=== PATIENT | female | born 2005 | race Caucasian/White ===

== ENCOUNTER 2025-05-23 18:51 | Inpatient (IN) ==
[2025-05-23 19:39] LABS: Hematocrit (blood only) 37.2 % (37.0-47.0); Hemoglobin 13.3 g/dl (12.0-16.0); Immature Granulocytes # (auto) 0.04 K/uL (0.01-0.20); Immature Granulocytes % (auto) 0.4 %; Mean Corpuscular Hemoglobin 30.4 pg (25.0-34.0); Mean Corpuscular Volume 85.1 fL (80.0-100.0); Platelet Count 256 K/uL (130-400); RDW Standard Deviation 39.4 fL (36.4-46.3); Red Blood Count 4.37 M/uL (4.20-5.40); White Blood Count 9.15 K/ul (4.8-10.8)
[2025-05-23 19:41] LABS: Appearance Urine Cloudy (Clear); Bacteria Urine Automated None Seen (None Seen); Cast Urine Automated 0-2 /lpf (0-2); Epithelial Cell Urine Auto 0-2 /hpf (0-2); Glucose Urine UA Negative (Negative); RBC Urine Automated 0-2 /hpf (0-2); WBC Urine Automated 0-5 /hpf (0-5)
--- NOTE | 2025-05-23 19:54 | Emergency Department Note ---
Impression & Plan Akhil, Anxiety and depression ED Provider Note Provider: Giuliano Hart MD CHIEF COMPLAINT: Mental health evaluation HISTORY OF PRESENT ILLNESS: Patient is a 19-year-old female past medical history of cochlear implant, ADHD, anxiety depression presenting here with family today for mental health evaluation. Patient with history of mental health issues and has been following with [facility]. Mainly anxiety depression recently diagnosed with ADHD. Has been on multiple medications and had interactions and side effects per mother's report. Patient evidently has declined this past week and earlier this week I think she may have had her first manic type episode. Patient evidently took off with the family car and then left her parents house once a day with friends until later coming to stay with her brother. Patient states that she is always had some thoughts of wanting to possibly hurt herself but this has been maybe a bit more pronounced. She reports that she attempted to commit suicide when she was 10 but no recent attempts. She does states she had thoughts when walking to room of how to hurt herself or others. She states she did look around various items and think that she can strangle someone with that or hit them with. Patient denies wanting to hurt he went on right now. She states she is in a bit of a somewhat better mental space. Has not had follow-up with [facility] for medication management in several months but does see a weekly therapist. Patient states she does have a history of binging and restricting with food as well. After long discussion with family and brother today believe she would benefit from inpatient treatment she did not have before and thus came here for evaluation. PAST MEDICAL HISTORY: As noted above MEDICATIONS: Reviewed home medications and no changes in several months. SOCIAL HISTORY: Currently staying with brother PHYSICAL EXAM: GENERAL: alert and oriented in no acute distress seated in chair in room. Family to the side. Head: normocephalic and atraumatic EYES: No injection, discharge or icterus. EOMI. NECK: Trachea midline. Good range of motion ENT: Mucous membranes pink and moist. LUNGS: Airway patent. No retractions or tachypnea HEART: Regular rate and rhythm. With good noted peripheral perfusion SKIN: Acyanotic, warm, dry, without rashes EXTREMITIES: Without swelling, tenderness or deformity NEUROLOGICAL: No focal deficits. No aphasia. No facial droop or slurred speech. Ambulatory. Psych: States she has chronic thoughts of possibly wanting to hurt herself or others. States she has not recently acted on these. Patient states she has had some racing thoughts at times and intrusive thoughts. Not responding to external stimuli here. Does make comments regarding various ways she could harm herself or others with implements in her room or on her persons. Patient's laboratory studies reviewed. Differential includes Mood disorder, infection, hypoglycemia, electrolyte abnormalities, cardiac sources, intracerebral event, toxicologic, trauma, neurologic, as well as other pathologies. IMPRESSION/MEDICAL DECISION MAKING: Patient was of family requesting inpatient mental health treatment. Certainly describes fairly severe what sounds like akhil symptoms earlier this week. Has moderated some but having significant negative thoughts. Reportedly has several weeks until an outpatient psychiatric visit. Denies actively attempting to harm her self or others at this time. Presents with family who are in agreement with this plan to come in for further acute mental health treatment. They do have prior genetic testing to try to help guide psychotropic medications and this was attached to her chart. Basic blood work is obtained. No significant abnormalities. Seen with case management. Referrals for inpatient treatment will be made. Given some Ativan per her request to help her sleep. Was evaluated by [facility] liaison but final decision and review of psychiatrist will take place in the morning given the late hour. Patient wish to wait and see if they would accept her here before looking for other facilities. Son is in the makeshift pending possible acceptance here to the inpatient psychiatric unit in the morning. DIAGNOSIS: Anxiety depression, akhil DISPOSITION: Signed out to Dr. Jhonny Layton pending acceptance for inpatient mental health treatment. Past Med/Surg History Problem List (Updated 05/23/25 @ 20:24 by Giuliano Hart M.D.) Anxiety and depression (Acute) Akhil (Acute) Vitamin D deficiency Organic periodic limb movement disorder Delayed sleep phase syndrome Nocturnal leg movements Fatigue Sleep disturbances Upper respiratory tract infection due to COVID-19 virus (Acute) History of cochlear implant History of tonsillectomy and adenoidectomy History of tonsillectomy History of mononucleosis Medical History History of mononucleosis No pertinent family history Surgical History History of cochlear implant History of tonsillectomy and adenoidectomy Social History Smoking Status: Never smoker Preferred Language: Latvian marital status: Single Current Living Situation: Family current occupational status: student Feels Safe at Home: No Gender Identity: Female Allergies Allergies Allergy/AdvReac Type Severity Reaction Status Date / Time animal dander Allergy Verified 05/02/22 08:49 grass pollen Allergy Verified 05/02/22 08:49 tree and shrub pollen Allergy Verified 05/02/22 08:49 Home Meds Home Medications Medication Instructions Recorded Confirmed ergocalciferol (vitamin D2) 50,000 50,000 unit PO WK 02/21/22 05/02/22 unit tablet monolauri avail PO 05/02/22 xzegdalt-efd-iudtlfrntay-cyst PO 05/02/22 05/02/22 neuromag PO 05/02/22 pyridoxine (vitamin B6) PO 05/02/22 05/02/22 tretinoin 0.1 % topical cream 1 applic topical Q OTHER DAY 05/02/22 05/02/22 Results & Data (ED) Vital Signs Vital Signs - 24 hr 05/23/25 18:52 05/23/25 21:30 Temperature 36.4 C L Temperature Source Temporal Artery Scan Pulse Rate 96 H Pulse Rate [Right Finger] 91 H Pulse Rhythm [Right Finger] Regular Pulse Strength [Right Finger] Normal Respiratory Rate 18 18 Respiratory Effort / Characteristics Non-Labored Spontaneous Non-Labored Spontaneous Respiratory Depth Normal Normal Respiratory Pattern Regular Regular Blood Pressure 127/85 Blood Pressure [Left Arm] 110/72 Blood Pressure Mean 99 Blood Pressure Mean [Left Arm] 84 Blood Pressure Position [Left Arm] Lying Pulse Oximetry 98 99 Oxygen Delivery Method Room Air Room Air Sepsis Recent Fever Within 48 Hours No Sepsis New/Unexplained Change in Mental Status N/A Sepsis Action Taken by Nursing No Action Required Laboratory Data 05/23/25 19:15 05/23/25 19:15 Lab Results 05/23/25 05/23/25 Range/Units 19:10 19:15 WBC 9.15 (4.8-10.8) K/ul RBC 4.37 (4.20-5.40) M/uL Hgb 13.3 (12.0-16.0) g/dl Hct 37.2 (37.0-47.0) % MCV 85.1 (80.0-100.0) fL MCH 30.4 (25.0-34.0) pg MCHC 35.8 (32.0-36.0) g/dL RDW Std Deviation 39.4 (36.4-46.3) fL RDW Coeff of Clem 12.8 (11.5-14.5) % Plt Count 256 (130-400) K/uL MPV 9.7 (9.4-12.4) fL Immature Gran % (Auto) 0.4 % Neut % (Auto) 65.5 % Lymph % (Auto) 23.4 % Cross % (Auto) 7.5 % Eos % (Auto) 2.7 % Baso % (Auto) 0.5 % Neut # (Auto) 5.98 (1.40-6.50) K/uL Lymph # (Auto) 2.14 (1.20-3.40) K/uL Cross # (Auto) 0.69 H (0.11-0.59) K/uL Eos # (Auto) 0.25 (0.00-0.50) K/uL Baso # (Auto) 0.05 (0.00-0.20) K/uL Immature Gran # (Auto) 0.04 (0.01-0.20) K/uL Sodium 137 (136-145) mmol/L Potassium 3.6 (3.5-5.1) mmol/L Chloride 104 (98-107) mmol/L Carbon Dioxide 24 (21-32) mmol/L Anion Gap 9 (3-11) BUN 12 (6-23) mg/dl Creatinine 0.60 (0.6-1.2) mg/dl Est Cr Clr Drug Dosing 146.5 ml/min eGFR 131.70 BUN/Creatinine Ratio 20.0 (10-20) Glucose 126 H (70-99(Fasting)) mg/dl Calcium 9.5 (8.6-10.3) mg/dl Total Bilirubin 1.1 H (0.2-1.0) mg/dl AST 26 (13-39) U/L ALT 31 (7-52) U/L Alkaline Phosphatase 51 (34-104) U/L Total Protein 7.2 (6.0-8.3) gm/dl Albumin 4.4 (3.4-5.0) gm/dl Globulin 2.8 (2.5-4.0) gm/dl Albumin/Globulin Ratio 1.6 (0.9-2) TSH 1.839 (0.300-4.500) uIu/ml HCG, Qual Negative (Negative) Urine Color Yellow Urine Appearance Cloudy A (Clear) Urine pH 7.5 (4.5-7.5) Ur Specific [place] 1.012 (1.000-1.030) Urine Protein Negative (Negative) Urine Glucose (UA) Negative (Negative) Urine Ketones Negative (Negative) Urine Blood Negative (Negative) Urine Nitrite Negative (Negative) Urine Bilirubin Negative (Negative) Urine Urobilinogen Negative (Negative) Ur Leukocyte Esterase Negative (Negative) Urine WBC (Auto) 0-5 (0-5) /hpf Urine RBC (Auto) 0-2 (0-2) /hpf U Hyaline Cast (Auto) 0-2 (0-2) /lpf U Epithel Cells (Auto) 0-2 (0-2) /hpf Urine Bacteria (Auto) None Seen (None Seen) Urine Comment Salicylates < 3.0 L (3.0-30) mg/dl Urine Opiates Screen Neg (Neg) Ur Methadone, Qual Neg (Neg) Urine Fentanyl Screen Neg (Neg) Acetaminophen < 3 L (10-30) ug/ml Urine Barbiturates Neg (Neg) Ur Phencyclidine (PCP) Neg (Neg) U Amphetamin/Meth Scrn Neg (Neg) MDMA (Ecstasy) Screen Neg (Neg) U Benzodiazepines Scrn Neg (Neg) Ur Cocaine Metabolite Neg (Neg) U Marijuana (THC) Screen Neg (Neg) Ethyl Alcohol mg/dL < 10.0 (<10.0) mg/dl SARS-CoV-2, RNA, NAAT NEGATIVE (NEGATIVE) Discharge Plan Visit Data Chief Complaint: Mental Health Evaluation Stated Complaint: MENTAL HEALTH ED Provider: Giuliano Hart Discharge Problem: Akhil, Anxiety and depression Patient Disposition: Still a Patient Condition: Fair Forms Stand Alone Forms: My [facility], Suicide Prevention Resources Prescriptions Prescriptions: No Action ergocalciferol (vitamin D2) 50,000 unit tablet 50,000 unit PO WK monolauri avail PO tretinoin 0.1 % cream 1 applic topical Q OTHER DAY pyridoxine (vitamin B6) PO frkclqfj-ozh-mtorepshovc-cyst PO neuromag PO Referrals Referrals: Gretchen Cid, [Physician] -
[2025-05-23 19:56] LABS: Alanine Aminotransferase 31.0 U/L (7-52); Albumin Globulin Ratio 1.6 (0.9-2); Alkaline Phosphatase 51.0 U/L (34-104); Anion Gap 9.0 (3-11); Bilirubin,Total 1.1 mg/dl (0.2-1.0); Blood Urea Nitrogen 12.0 mg/dl (6-23); Calcium 9.5 mg/dl (8.6-10.3); Carbon Dioxide 24.0 mmol/L (21-32); Chloride 104.0 mmol/L (98-107); Creatinine Clr Calc Pharmacy 146.5 ml/min; Globulin 2.8 gm/dl (2.5-4.0); Glucose 126.0 mg/dl (70-99(Fasting)); Potassium 3.6 mmol/L (3.5-5.1); Sodium 137.0 mmol/L (136-145); Total Protein 7.2 gm/dl (6.0-8.3)
[2025-05-23 19:57] LABS: Acetaminophen < 3 ug/ml (10-30); Salicylate < 3.0 mg/dl (3.0-30)
[2025-05-23 19:59] LABS: Pregnancy Test, Serum Negative (Negative)
[2025-05-23 20:11] LABS: Thyroid Stimulating Hormone 1.839 uIu/ml (0.300-4.500)
[2025-05-23 20:16] LABS: Amphetamines+Metham, Urine Neg (Neg); MDMA (Ecstacy), Urine Neg (Neg); Marijuana, Urine Neg (Neg)
--- NOTE | 2025-05-23 23:31 | Emergency Department Note ---
ED Visit Note Date and Time: 05/23/2025 2330 Interval History: Sign out received from Dr. Hart who reviewed details of the encounter. Patient was pending Bed placement. Summary: Patient is manic and received a dose Ativan for sleep. She slept throughout the night. Disposition: She will be evaluated this morning by staff from [facility] for possible voluntary admission to their unit The case will be signed out to Dr. Pollard at change of shift awaiting final disposition. .
[2025-05-24] MEDS: LORazepam 1 MG TAB SL STA (00:31)
--- NOTE | 2025-05-24 07:20 | Emergency Department Note ---
ED Visit Note Patient is a 19-year-old female who signed out to me who was seen and evaluated by Dr. Carter. Patient was medically cleared and signed out to me by Dr. Gage. Current plan is evaluation by [facility] 201 for manic as well as homicidal ideations. Patient is agreeable to coming in. Patient rested under my care until 8:00 when patient was taken to [facility] a 201. .
[2025-05-24] MEDS ORDERED: ALUMINUM/MAGNESIUM SUSP 30 ML UDC PO PRN (07:36)
[2025-05-24] MEDS ORDERED: SODIUM CHLORIDE 0.65% NA SOLN 45 ML (OCEAN) PRN (07:36)
[2025-05-24] MEDS ORDERED: ACETAMINOPHEN 325 MG TAB PO PRN (07:36)
[2025-05-24] MEDS ORDERED: MAGNESIUM HYDROXIDE SUSP 30 ML UDC PO PRN (07:36)
[2025-05-24] MEDS ORDERED: BISMUTH SUBSALICYLATE 262 MG CHEW PO PRN (07:36)
[2025-05-24 08:52] VITALS: O2SAT 98
--- NOTE | 2025-05-24 09:08 | History & Physical ---
Date of Service May 24, 2025 Impression / Recommendations Impression ASHLEY CASILLAS is a 19-year-old woman who currently lives in [place] with her parents, has a history of cochlear implant, ADHD, OCD, depression, anxiety and was admitted on 05/24/25 07:36 on a 201 voluntary commitment for unusual behaviors, concern for akhil, intrusive thoughts. Diagnostically consistent with unspecified mood disorder with differential including stimulant-induced from recent new prescription of Adderall (started ~1 month ago, discontinued 4 days ago) vs bipolar affective disorder current episode of akhil vs mixed episode vs borderline personality disorder vs exacerbation of OCD (from recent stimulant and potentially increased in setting of starting college). Substance-induced mood episode unlikely given denial of recent substance use and negative UDS. Discussed medication treatment options in detail. Discussed risks, benefits and alternatives. She would like to start and consented to olanzapine for unspecified mood disorder and marked insomnia. Reviewed side effects including but not limited to: movement (TD, NMS), cardiac (QTc prolongation), and metabolic (stroke, insulin resistance) and necessity for fasting lipid and glucose labwork and AIMS done with score of 0. MNPR-given recent violent thoughts and mood lability with irritability and need for sleep promotion with limited disruptions Overall I spent a total of 75 minutes for this admission including review of chart records, review of labwork, direct evaluation of the patient, counseling the patient, ordering medication, risk assessment, discussion with the psychiatric liason RN and documentation in the electronic health record. (1) Unspecified mood [affective] disorder: (2) Obsessive compulsive disorder: (3) ADHD: (4) Insomnia: Plan 05/24/2025: The patient was admitted to the [facility] ([facility]) on q15 min checks (behavioral with suicide precautions) for safety. The patient will participate in group, recreational, and milieu therapies and will be offered additional individual and family sessions as clinically appropriate. -Start olanzapine 5mg HS with additional 5mg HS prn for insomnia -fasting lipid panel, HbA1c and Vit D tomorrow AM -Symptom questionnaires: PHQ-9, COLLEEN-7, mood disorder questionnaire, Y-BOCS, Jade BPD Inventory Assets Strengths: supportive relationships, willing to get treatment Needs: safety and stabilization, medication adjustment, additional coping skills, increased outpatient services Suicide Risk Level Suicide Risk Level: High-Moderate (q15 min suicide checks) (mood lability, recent SI and violent thoughts but ego-dystonic and denies current SI and HI, feels able to ask staff for support) Risk Factors Assessment Male: No : Yes Do You Have Access To A Gun?: No Health Problems: No Mental Health Diagnoses: Yes Substance Use Disorders: No Previous Attempt: No Family History of Suicide: No Previous Psychiatric Hospitalization: No Hopelessness: No Protective Factors Assessment Anabaptism Beliefs: Yes : No Responsible for Young Children: No Employed: No Stable Relationships: Yes Supportive Family: Yes Psychiatric History Identifying Data ASHLEY CASILLAS is a 19-year-old woman who currently lives in [place] with her parents, has a history of cochlear implant, ADHD, OCD, depression, anxiety and was admitted on 05/24/25 07:36 on a 201 voluntary commitment for unusual behaviors, concern for akhil, intrusive thoughts. Chief Complaint "I'm having dramatic mood swings". History of Present Illness Ashley presents for psychiatric admission with worsening intrusive thoughts, severe sleep disturbances, and mood changes over the past two weeks in the context of starting college classes and recent medication changes. She abruptly moved out of her parents home and has been staying with her brother in recent days. She gets tearful discussing missing her parents after leaving their home. She reports family-related stress in describing her parents as "too loving" and "over-bearing". She reports experiencing intrusive thoughts about violence towards others and herself, which she describes as similar to her previous OCD-related thoughts but significantly worse recently. These thoughts can be violent or sexual in nature, involving people of all ages, and occur when others are close to her. She finds these thoughts distressing and states they are more severe than her baseline OCD symptoms. Over the past two weeks, Ashley has been experiencing severe sleep disturbances, sleeping only 1-2 hours per night. She attempted to self-medicate one night with alcohol to improve sleep, consuming multiple beers in one night but this was ineffective. She reports feeling happy and stable at present, attributing this to finally getting help, but mentions crying frequently over the past week due to missing her parents. Asked about symptoms of akhil she denies any grandiose or religion delusions but makes some reference to her religion beliefs and states she has been engaged in more risk taking. She initially reports engaging in excessive shopping, buying a new wardrobe, but then she clarifies this has been planned for nearly two years and she was waiting for "mid summer sales". A dditionally, she mentions experiencing unusual tastes in her coffee today, describing it as tasting like alcohol, and asks "please don't put any more medications in the coffee" noting "I know you do that". Ashley discontinued her medications including Adderall, Pristiq and guanfacine 4 days ago. Since stopping these medications, she hasn't noticed any significant changes except increased appetite. Ashley has a history of ADHD and OCD. She reports a history of nightmares related to her OCD. She denies any prior history of psychosis nor akhil. History of self-harming behaviors. History of binging and then restricting food. Additional history per ED CM note on 05/23/2025: "Met with Ashley at bedside to complete psychiatric assessment. Her mother, father, and brother Jean Pierre are pre sent at bedside with Ashley's permission. She has a superficially bright affect and smiles throughout assessment. Ashley states that she is here due to what she presumes are "signs of bipolar depression". She notes that over the past few weeks, her behavior has made people around her feel uncomfortable and unsafe. Two weeks ago, she left her parents' home (where she resides) after a disagreement. She knowingly took her mother's car knowing she did not have permission to use it. Ashley states that she left if she stayed, she was "either going to complete suicide or kill my whole family". She then stayed with her brother Jean Pierre for a few days and, through their discussions, decided that Ashley needed some additional psychiatric help. Jean Pierre called Crisis to discuss the situation and they recommend Ashley come to [facility] for evaluation. Ashley denies active suicidal or homicidal ideation at time of assessment, but does admit that she thinks about ways to kill herself and others every time she walks into a room. She pointed out several items in the room that she could use to hurt herself or someone else. She denies intent to do so, but thinks about this all the time." Past Psychiatric History Current Psychiatric Diagnosis: Depression, Anxiety, ADHD, OCD Outpatient Services: Rohini Sheppard at [place] therapist-Angi Duke at [facility] Previous Psych Admissions: none Do You Have Access To A Gun?: No History of Previous Suicide Attempt: No Past Medication Trials: Pristiq, Adderall, gunafacine Allergies Allergy/AdvReac Type Severity Reaction Status Date / Time animal dander Allergy Verified 05/02/22 08:49 grass pollen Allergy Verified 05/02/22 08:49 tree and shrub pollen Allergy Verified 05/02/22 08:49 Home Medications Medication Instructions Recorded Confirmed Type ergocalciferol (vitamin D2) 50,000 50,000 unit PO WK 02/21/22 05/23/25 History unit tablet desvenlafaxine succinate 25 mg 25 mg PO QAM 05/23/25 05/23/25 History tablet,extended release 24 hr dextroamphetamine-amphetamine ER 15 cap PO QAM 05/23/25 05/23/25 History 15 mg 24hr capsule,extend release guanfacine 2 mg tablet,extended 2 mg PO HS 05/23/25 05/23/25 History release 24 hr Family History Family History of: Doesn't Know Alcohol History Hx of Alcohol Use Over the Past 12 Months: Yes (drinks 2 beers/night) AUDIT Total Score: 0 Smoking Use Have You Smoked or Used Tobacco Products in the Last 30 Days: No Smoking Status: Never smoker Substance History Hx of Prescription Med Misuse Over the Past 12 Months: No Hx of Over the Counter Med Misuse Over the Past 12 Months: No Hx of Inhalent Misuse Over the Past 12 Months: No Hx of Organic Substance Use Over the Past 12 Months: No Hx of Illegal Substances/Street Drug Use Over Past 12 Months: No Problems as a Result of Past Substance Use: None Identified rare cannabis use Personal History Living Arrangements: Home Highest Grade Completed: Some College Employment Status: Student Marital Status: Single Beliefs That Will Affect Care: None Current Legal Problems: No Hx Legal Problems: No Hx Traumatic Life Events: No Patient History Medical History (Updated 05/24/25 @ 21:56 by Radha Boateng MD) ADHD No pertinent family history Social History Smoking Status: Never smoker Preferred Language: Indonesian Communication Ability: Effective Germ Drier Required: No Beliefs That Will Affect Care: None marital status: Single Current Living Situation: Family current occupational status: student Feels Safe at Home: Yes Gender Identity: Female Assistive Devices Comment: cochlear implants Review of Systems Review of Systems: All systems reviewed & are unremarkable except as noted in HPI & below Physical Exam Psychiatric: Orientation: alert and oriented x 3 Apperance: appropriately dressed and appropriately groomed Eye Contact: good eye contact Motor Behavior: + psychomotor agitation Speech: + pressured speech Affect: euthymic affect, + labile affect and + irritable affect Mood: + depressed mood, + anxious mood and + irritable mood Thought Process: + tangential thought process Thought Content: + paranoid Suicidal Thoughts: denies suicidal thoughts, denies suicidal plan and denies suicidal intent Homicidal Thoughts: denies homicidal thoughts (but reports intrusive violent thoughts prior to admission), denies homicidal plan and denies homicidal intent Hallucinations: no auditory hallucinations and no visual hallucinations Cognition: recent memory grossly intact, remote memory grossly intact, attention grossly intact and language grossly intact Estimated Intelligence: cons istent with education level Insight: + fair insight Judgment: + limited judgement Vital Signs (Past 24 Hours): Last Vital Signs Temp 36.8 C 05/24/25 08:40 Pulse 83 05/24/25 08:40 Resp 18 05/24/25 08:40 BP 133/83 05/24/25 08:40 Pulse Ox 98 05/24/25 08:40 O2 Del Method Room Air 05/24/25 08:40 Exam Statement: A physical exam was performed in the ED by Dr. Hart for the purposes of medical clearance. I accept that physical as correct and adequate for the purposes of the inpatient physical exam. Results & Data ([facility]) Laboratory Results Laboratory Results - last 24 hr 05/23/25 05/23/25 19:10 19:15 WBC 9.15 RBC 4.37 Hgb 13.3 Hct 37.2 MCV 85.1 MCH 30.4 MCHC 35.8 RDW Std Deviation 39.4 RDW Coeff of Clem 12.8 Plt Count 256 MPV 9.7 Immature Gran % (Auto) 0.4 Neut % (Auto) 65.5 Lymph % (Auto) 23.4 [place] % (Auto) 7.5 Eos % (Auto) 2.7 Baso % (Auto) 0.5 Neut # (Auto) 5.98 Lymph # (Auto) 2.14 [place] # (Auto) 0.69 H Eos # (Auto) 0.25 Baso # (Auto) 0.05 Immature Gran # (Auto) 0.04 Sodium 137 Potassium 3.6 Chloride 104 Carbon Dioxide 24 Anion Gap 9 BUN 12 Creatinine 0.60 Est Cr Clr Drug Dosing 146.5 eGFR 131.70 BUN/Creatinine Ratio 20.0 Glucose 126 H Calcium 9.5 Total Bilirubin 1.1 H AST 26 ALT 31 Alkaline Phosphatase 51 Total Protein 7.2 Albumin 4.4 Globulin 2.8 Albumin/Globulin Ratio 1.6 TSH 1.839 HCG, Qual Negative Urine Color Yellow Urine Appearance Cloudy A Urine pH 7.5 Ur Specific [place] 1.012 Urine Protein Negative Urine Glucose (UA) Negative Urine Ketones Negative Urine Blood Negative Urine Nitrite Negative Urine Bilirubin Negative Urine Urobilinogen Negative Ur Leukocyte Esterase Negative Urine WBC (Auto) 0-5 Urine RBC (Auto) 0-2 U Hyaline Cast (Auto) 0-2 U Epithel Cells (Auto) 0-2 Urine Bacteria (Auto) None Seen Urine Comment Salicylates < 3.0 L Urine Opiates Screen Neg Ur Methadone, Qual Neg Urine Fentanyl Screen Neg Acetaminophen < 3 L Urine Barbiturates Neg Ur Phencyclidine (PCP) Neg U Amphetamin/Meth Scrn Neg MDMA (Ecstasy) Screen Neg U Benzodiazepines Scrn Neg Ur Cocaine Metabolite Neg U Marijuana (THC) Screen Neg Ethyl Alcohol mg/dL < 10.0 SARS-CoV-2, RNA, NAAT NEGATIVE Current Inpatient Medications Current Inpatient Medications: Current Inpatient Medications Acetaminophen (Acetaminophen 325 Mg Tab) 650 mg PO Q4H PRN PRN Reason: Headache or Minor Fever Stop: 06/23/25 07:35 Al Hydrox/Mg Hydrox/Simethicone (Aluminum/Magnesium Susp 30 Ml Udc) 30 ml PO Q4H PRN PRN Reason: GI Upset Stop: 06/23/25 07:35 Bismuth Subsalicylate (Bismuth Subsalicylate 262 Mg Chew) 2 tab PO Q30M PRN PRN Reason: Loose Stool/Diarrhea Stop: 06/23/25 07:35 Hydroxyzine HCl (Hydroxyzine Hcl 25 Mg Tab) 50 mg PO HSZ PRN PRN Reason: Insomnia Stop: 06/23/25 07:35 Hydroxyzine HCl (Hydroxyzine Hcl 25 Mg Tab) 25 mg PO Q4H PRN PRN Reason: Anxiety Stop: 06/23/25 07:35 Magnesium Hydroxide (Magnesium Hydroxide Susp 30 Ml Udc) 30 ml PO DAILY PRN PRN Reason: Constipation Stop: 06/23/25 07:35 Sodium Chloride (Sodium Chloride 0.65% Na Soln 45 Ml ([place])) 1 - 2 sprays NA PRN PRN PRN Reason: Nasal Dryness/Congestion Stop: 06/23/25 07:35
[2025-05-25 06:23] VITALS: RESP 16
--- NOTE | 2025-05-25 09:13 | Psychiatric Progress Note ---
Date of Service May 25, 2025 Impression / Recommendations Impression EMEKA CASILLAS is a 19-year-old woman who currently lives in [place] with her parents, has a history of cochlear implant, ADHD, OCD, depression, anxiety and was admitted on 05/24/25 07:36 on a 201 voluntary commitment for unusual behaviors, concern for akhil, intrusive thoughts. Diagnostically consistent with unspecified mood disorder with differential including stimulant-induced from recent new prescription of Adderall (started ~1 month ago, discontinued 4 days ago) vs bipolar affective disorder current episode of akhil vs mixed episode vs borderline personality disorder vs exacerbation of OCD (from recent stimulant and potentially increased in setting of starting college). Substance-induced mood episode unlikely given denial of recent substance use and negative UDS. Overall I spent a total of 30 minutes for this evaluation iincluding review of chart records, review of labwork, direct evaluation of the patient, counseling the patient, ordering medication, risk assessment, and documentation in the electronic health record. (1) Unspecified mood [affective] disorder: (2) Obsessive compulsive disorder: (3) ADHD: (4) Insomnia: Plan 05/25/2025: -Added Colace 100mg po BID for constipation -Tolerating medications well. NO side effects on initial dose of OLZ. May benefit from increase but the medication was introduced yesterday. Will reassess in the next few days. No other medication changes 05/24/2025: The patient was admitted to the [facility] ([facility] mental health unit) on q15 min checks (behavioral with suicide precautions) for safety. The patient will participate in group, recreational, and milieu therapies and will be offered additional individual and family sessions as clinically appropriate. -Start olanzapine 5mg HS with additional 5mg HS prn for insomnia -fasting lipid panel, HbA1c and Vit D tomorrow AM -Symptom questionnaires: PHQ-9, COLLEEN-7, mood disorder questionnaire, Y-BOCS, Jade BPD Inventory Assets Strengths: supportive relationships, willing to get treatment Needs: safety and stabilization, medication adjustment, additional coping skills, increased outpatient services Suicide Risk Level Suicide Risk Level: High-Moderate (q15 min suicide checks) (mood lability, recent SI and violent thoughts but ego-dystonic and denies current SI and HI, feels able to ask staff for support) Risk Factors Assessment Male: No : Yes Do You Have Access To A Gun?: No Health Problems: No Mental Health Diagnoses: Yes Substance Use Disorders: No Previous Attempt: No Family History of Suicide: No Previous Psychiatric Hospitalization: No Hopelessness: No Protective Factors Assessment Mandaeism Beliefs: Yes : No Responsible for Young Children: No Employed: No Stable Relationships: Yes Supportive Family: Yes Interval History Chief Complaint "My family thinks I am bipolar depression. Reality is very deceptive and di storted. I had a panic attack and started thinking that my parents were going to hurt him but I realized that they would never hurt me." Review of Systems Sleep Information Total Hours of Sleep: 6.5 Meal Information Percent Meal Consumed - Breakfast: 100 Percent Meal Consumed - Lunch: 100 Percent Meal Consumed - Dinner: 90 Subjective Subjective Patient was seen & assessed and interval progress reviewed during treatment team with nursing and social work. Patient was easy to engage and forthcoming with information. She reported a long history of anxiety with episodes of panic-like symptoms. However, she cant remember when she had the first panic attack. the patient reported a history of night terrors since she was very young. also added that she suspects that she has autism spectrum disorder. she indicated that she took a self- assessment test and scored high, then added"I think I am a little bit on the spectrum." She suspects her grandfather has the same condition. Patient reported she graduated HS with GPA=3.9, she is currently enrolled in college classes. Stated that her anxiety has been getting in the way of her functioning and causing her to do things that are not in her nature. Patient completed -MDQ= 14 with serious problem but no prior diagnosis - BPD= answer all positive (YES) - PHQ-9=17 - COLLEEN-7=18 - YBOCS=10 with acknowledgment of past aggressive obsessions somatic obsessions sexual obsessions scientology obsessions and other miscellaneous obsessions. Compulsions included need to tell ask or confessed need to touch tap or rub rituals involving blinking or staring. Physical Exam Psychiatric Orientation: alert and oriented x 3 Apperance: appropriately dressed and appropriately groomed Eye Contact: good eye contact Motor Behavior: + psychomotor agitation Speech: + pressured speech ( monotone but rapid) Affect: euthymic affect; no labile affect and no irritable affect Mood: + anxious mood; no irritable mood Thought Process: + tangential thought process Thought Content: + paranoid Suicidal Thoughts: denies suicidal thoughts, denies suicidal plan and denies suicidal intent Homicidal Thoughts: denies homicidal thoughts (but reports intrusive violent thoughts prior to admission), denies homicidal plan and denies homicidal intent Hallucinations: no auditory hallucinations and no visual hallucinations Cognition: recent memory grossly intact, remote memory grossly intact, attention grossly intact and language grossly intact Estimated Intelligence: consistent with education level Insight: + fair insight Judgment: + limited judgement Vital Signs (Past 24 Hours) Last Vital Signs Temp 36.4 C L 05/25/25 06:21 Pulse 97 H 05/25/25 06:22 Resp 16 05/25/25 06:21 BP 123/80 05/25/25 06:22 Pulse Ox 98 05/24/25 08:40 O2 Del Method Room Air 05/24/25 08:40 Results & Data ([facility]) Current Inpatient Medications Current Inpatient Medications: Current Inpatient Medications Acetaminophen (Acetaminophen 325 Mg Tab) 650 mg PO Q4H PRN PRN Reason: Headache or Minor Fever Stop: 06/23/25 07:35 Al Hydrox/Mg Hydrox/Simethicone (Aluminum/Magnesium Susp 30 Ml Udc) 30 ml PO Q4H PRN PRN Reason: GI Upset Stop: 06/23/25 07:35 Bismuth Subsalicylate (Bismuth Subsalicylate 262 Mg Chew) 2 tab PO Q30M PRN PRN Reason: Loose Stool/Diarrhea Stop: 06/23/25 07:35 Hydroxyzine HCl (Hydroxyzine Hcl 25 Mg Tab) 50 mg PO HSZ PRN PRN Reason: Insomnia Stop: 06/23/25 07:35 Hydroxyzine HCl (Hydroxyzine Hcl 25 Mg Tab) 25 mg PO Q4H PRN PRN Reason: Anxiety Stop: 06/23/25 07:35 Lorazepam (Lorazepam 1 Mg Tab) 1 mg PO TID PRN PRN Reason: agitation/restlessness Stop: 06/23/25 11:58 Magnesium Hydroxide (Magnesium Hydroxide Susp 30 Ml Udc) 30 ml PO DAILY PRN PRN Reason: Constipation Stop: 06/23/25 07:35 Olanzapine (Olanzapine 5 Mg Tablet) 5 mg PO HS KAJAL Stop: 06/23/25 21:59 Last Admin: 05/24/25 23:05 Dose: 5 mg Olanzapine (Olanzapine 5 Mg Tablet) 5 mg PO HS PRN PRN Reason: insomnia Stop: 06/23/25 21:59 Sodium Chloride (Sodium Chloride 0.65% Na Soln 45 Ml ([place])) 1 - 2 sprays NA PRN PRN PRN Reason: Nasal Dryness/Congestion Stop: 06/23/25 07:35 Mental Health & Subst Abuse Tx Psychiatrist Date Of Appointment With Psychiatric Provider: 06/08/25 - SW will call on Sunday to find out the time. Therapist Name of Therapist: Angi Luna Date of Therapist Appointment: 05/27/25 Time of Therapist Appointment: SW will call when they are opening to either re schedule or find out time. Medical Assistant Name of Medical Assistant: N/A Post Discharge Appointments Primary Care Physician Name Of Family Doctor/PCP: Dr. Ronquillo
[2025-05-25] MEDS: DOCUSATE SODIUM 100 MG CAP PO SCH (20:49)
[2025-05-26 09:11] LABS: Cholesterol 166.0 mg/dl (0-200); HDL Cholesterol 88.0 mg/dl; Triglycerides 45.0 mg/dl (0-150)
[2025-05-26 09:35] LABS: Hemoglobin A1C 4.2 % (4.5-5.6)
--- NOTE | 2025-05-26 12:54 | Psychiatric Progress Note ---
Date of Service May 26, 2025 Impression / Recommendations Impression EMEKA CASILLAS is a 19-year-old woman who currently lives in [place] with her parents, has a history of cochlear implant, ADHD, OCD, depression, anxiety and was admitted on 05/24/25 07:36 on a 201 voluntary commitment for unusual behaviors, concern for akhil, intrusive thoughts. Diagnostically consistent with unspecified mood disorder with differential including stimulant-induced from recent new prescription of Adderall (started ~1 month ago, discontinued 4 days ago) vs bipolar affective disorder current episode of akhil vs mixed episode vs borderline personality disorder vs exacerbation of OCD (from recent stimulant and potentially increased in setting of starting college). Substance-induced mood episode unlikely given denial of recent substance use and negative UDS. Difficulty with no relation of her mood and her voice volume. Reported a history of feeling easily overstimulated by the environment. Overall I spent a total of 45 minutes for this evaluation iincluding review of chart records, review of labwork, direct evaluation of the patient, counseling the patient, ordering medication, risk assessment, and documentation in the electronic health record. (1) Unspecified mood [affective] disorder: (2) Obsessive compulsive disorder: (3) ADHD: (4) Insomnia: Plan 05/26/2025: - Increase Zyprexa to 10 mg po HS 05/25/2025: -Added Colace 100mg po BID for constipation -Tolerating medications well. NO side effects on initial dose of OLZ. May benefit from increase but the medication was introduced yesterday. Will reassess in the next few days. No other medication changes 05/24/2025: The patient was admitted to the [facility] ([facility]) on q15 min checks (behavioral with suicide precautions) for safety. The patient will participate in group, recreational, and milieu therapies and will be offered additional individual and family sessions as clinically appropriate. -Start olanzapine 5mg HS with additional 5mg HS prn for insomnia -fasting lipid panel, HbA1c and Vit D tomorrow AM -Symptom questionnaires: PHQ-9, COLLEEN-7, mood disorder questionnaire, Y-BOCS, Jade BPD Inventory Assets Strengths: supportive relationships, willing to get treatment Needs: safety and stabilization, medication adjustment, additional coping skills, increased outpatient services Suicide Risk Level Suicide Risk Level: High-Moderate (q15 min suicide checks) (mood lability, recent SI and violent thoughts but ego-dystonic and denies current SI and HI, feels able to ask staff for support) Risk Factors Assessment Male: No : Yes Do You Have Access To A Gun?: No Health Problems: No Mental Health Diagnoses: Yes Substance Use Disorders: No Previous Attempt: No Family History of Suicide: No Previous Psychiatric Hospitalization: No Hopelessness: No Protective Factors Assessment Restorationist Beliefs: Yes : No Responsible for Young Children: No Employed: No Stable Relationships: Yes Supportive Family: Yes Interval History Chief Complaint "The medication is not working". Review of Systems Sleep Information Total Hours of Sleep: 6 Meal Information Percent Meal Consumed - Breakfast: 100 Percent Meal Consumed - Lunch: 100 Percent Meal Consumed - Dinner: 100 Subjective Subjective Patient was seen & assessed and interval progress reviewed with nursing and social work. Patient presented for evaluation complaining about her medication "not working" and stated that she still feels very anxious. Patient described difficulty regulating her emotions and stated that she was recently "manic" and is now "crashing into depression." she reported feeling sad; however, her affect was somewhat elated. She then rambled about a relationship with a friend/love interest. Patient shared that this person is 18 years old and has. B being drinking heavily she went on to say that they are "soul mate" and "[place] by trauma". Patient also spoke at length about her family and indicated that "my eating disorder is because my parents comment too much about my body." Patient expressed interest in learning more about autism spectrum in females. Will provide some reading resources. We discussed adjusting the medication by increasing the dose of olanzapine she agreed with this plan. Denied experiencing side effects at 5 mg. Labs were collected this morning. Lipid profile is within normal limits hemoglobin A1c is 4.2 (L). Physical Exam Psychiatric Orientation: alert and oriented x 3 Apperance: appropriately dressed and appropriately groomed Eye Contact: good eye contact Motor Behavior: + psychomotor agitation (Restless) Speech: + pressured speech ( monotone but rapid) Affect: + elated affect; no labile affect and no irritable affect Mood: + depressed mood and + anxious mood; no irritable mood Thought Process: + tangential thought process and + flight of ideas Thought Content: + paranoid Suicidal Thoughts: denies suicidal thoughts, denies suicidal plan and denies suicidal intent Homicidal Thoughts: denies homicidal thoughts (but reports intrusive violent thoughts prior to admission), denies homicidal plan and denies homicidal intent Hallucinations: no auditory hallucinations and no visual hallucinations Cognition: recent memory grossly intact, remote memory grossly intact, attention grossly intact and language grossly intact Estimated Intelligence: consistent with education level Insight: + fair insight Judgment: + limited judgement Vital Signs (Past 24 Hours) Last Vital Signs Temp 36.4 C L 05/26/25 06:26 Pulse 99 H 05/26/25 06:27 Resp 16 05/26/25 06:26 BP 120/75 05/26/25 06:27 Pulse Ox 98 05/24/25 08:40 O2 Del Method Room Air 05/24/25 08:40 Results & Data ([facility]) Laboratory Results Laboratory Results - last 24 hr 05/26/25 07:55 Estimat Average Glucose 74 Hemoglobin A1c 4.2 L Triglycerides 45 Cholesterol 166 LDL Cholesterol, Calc 69 VLDL Cholesterol, Calc 9 HDL Cholesterol 88 Cholesterol/HDL Ratio 1.9 25-OH Vitamin D Total 26.4 Current Inpatient Medications Current Inpatient Medications: Current Inpatient Medications Acetaminophen (Acetaminophen 325 Mg Tab) 650 mg PO Q4H PRN PRN Reason: Headache or Minor Fever Stop: 06/23/25 07:35 Al Hydrox/Mg Hydrox/Simethicone (Aluminum/Magnesium Susp 30 Ml Udc) 30 ml PO Q4H PRN PRN Reason: GI Upset Stop: 06/23/25 07:35 Bismuth Subsalicylate (Bismuth Subsalicylate 262 Mg Chew) 2 tab PO Q30M PRN PRN Reason: Loose Stool/Diarrhea Stop: 06/23/25 07:35 Docusate Sodium (Docusate Sodium 100 Mg Cap) 100 mg PO BID KAJAL Stop: 06/24/25 20:59 Last Admin: 05/26/25 08:21 Dose: 100 mg Hydroxyzine HCl (Hydroxyzine Hcl 25 Mg Tab) 50 mg PO HSZ PRN PRN Reason: Insomnia Stop: 06/23/25 07:35 Hydroxyzine HCl (Hydroxyzine Hcl 25 Mg Tab) 25 mg PO Q4H PRN PRN Reason: Anxiety Stop: 06/23/25 07:35 Lorazepam (Lorazepam 1 Mg Tab) 1 mg PO TID PRN PRN Reason: agitation/restlessness Stop: 06/23/25 11:58 Magnesium Hydroxide (Magnesium Hydroxide Susp 30 Ml Udc) 30 ml PO DAILY PRN PRN Reason: Constipation Stop: 06/23/25 07:35 Olanzapine (Olanzapine 5 Mg Tablet) 5 mg PO HS KAJAL Stop: 06/23/25 21:59 Last Admin: 05/25/25 21:34 Dose: 5 mg Olanzapine (Olanzapine 5 Mg Tablet) 5 mg PO HS PRN PRN Reason: insomnia Stop: 06/23/25 21:59 Sodium Chloride (Sodium Chloride 0.65% Na Soln 45 Ml ([place])) 1 - 2 sprays NA PRN PRN PRN Reason: Nasal Dryness/Congestion Stop: 06/23/25 07:35 Mental Health & Subst Abuse Tx Psychiatrist Name of Psychiatrist: Rohini Cabrera Psychiatrist's Date Of Appointment With Psychiatric Provider: 06/08/25 Time of Appointment with Psychiatrist: [id number] Therapist Name of Therapist: Angi Luna Date of Therapist Appointment: 05/27/25 Time of Therapist Appointment: Waiting for Call Back to Reschedule Appointment. Magnetic Tape Typewriter Operator Name of Magnetic Tape Typewriter Operator: N/A Post Discharge Appointments Primary Care Physician Name Of Family Doctor/PCP: Dr. Ronquillo
[2025-05-26] MEDS: OLANZapine 10 MG TAB PO SCH (21:20)
--- NOTE | 2025-05-27 09:34 | Psychiatric Progress Note ---
Date of Service May 27, 2025 Impression / Recommendations Impression EMEKA CASILLAS is a 19-year-old woman who currently lives in [place] with her parents, has a history of cochlear implant, ADHD, OCD, depression, anxiety and was admitted on 05/24/25 07:36 on a 201 voluntary commitment for unusual behaviors, concern for akhil, intrusive thoughts. Diagnostically consistent with unspecified mood disorder with Autism Spectrum as primary. Many autistic patients do experience delusions. However, it seems likely that at least some of her "delusions" may be a result of neuro divergent experiences. Patient reported a long history of feeling easily overstimulated, to the point of removing her hearing aids in the mornings to decrease the sensory input. She struggles to differentiate between her internal thoughts and external environment. She appears to have reach fantasy world. We have discussed some aspects of the autism spectrum diagnosis with patient has been offer reading materials to understand the condition better. Overall I spent a total of 45 minutes for this evaluation including review of chart records, review of labwork, direct evaluation of the patient, counseling the patient, ordering medication, risk assessment, and documentation in the electronic health record. (1) Unspecified mood [affective] disorder: (2) Obsessive compulsive disorder: (3) ADHD: (4) Insomnia: (5) Autism spectrum disorder: Plan 05/27/25: -Continue medication without changes -Sleep hygiene discussed. Encourage to stay out of bed during the daytime. Avoid drinking coffee in the afternoon. 05/26/2025: - Increase Zyprexa to 10 mg po HS 05/25/2025: -Added Colace 100mg po BID for constipation -Tolerating medications well. NO side effects on initial dose of OLZ. May benefit from increase but the medication was introduced yesterday. Will reassess in the next few days. No other medication changes 05/24/2025: The patient was admitted to the [facility] ([facility] inpatient mental health unit) on q15 min checks (behavioral with suicide precautions) for safety. The patient will participate in group, recreational, and milieu therapies and will be offered additional individual and family sessions as clinically appropriate. -Start olanzapine 5mg HS with additional 5mg HS prn for insomnia -fasting lipid panel, HbA1c and Vit D tomorrow AM -Symptom questionnaires: PHQ-9, COLLEEN-7, mood disorder questionnaire, Y-BOCS, Jade BPD Inventory Assets Strengths: supportive relationships, willing to get treatment Needs: safety and stabilization, medication adjustment, additional coping skills, increased outpatient services Suicide Risk Level Suicide Risk Level: Moderate (q15 min suicide checks) Risk Factors Assessment Male: No : Yes Do You Have Access To A Gun?: No Health Problems: No Mental Health Diagnoses: Yes Substance Use Disorders: No Previous Attempt: No Family History of Suicide: No Previous Psychiatric Hospitalization: No Hopelessness: No Protective Factors Assessment Worship Beliefs: Yes : No Responsible for Young Children: No Employed: No Stable Relationships: Yes Supportive Family: Yes Interval History Chief Complaint "I feel like a 10 [mg of Olanzapine] is better than five but it still took me a long time to fall sleep". Review of Systems Sleep Information Total Hours of Sleep: 5.5 Meal Information Percent Meal Consumed - Breakfast: 0 Percent Meal Consumed - Lunch: 100 Percent Meal Consumed - Dinner: 100 Nutrition Comment: pt. asleep. meal labeled, dated and refrigerated Subjective Subjective Patient was seen & assessed and interval progress reviewed with nursing and social work. Patient presented for evaluation with a calm and friendly demeanor. Reported that the increase of olanzapine was helpful. However, stated that her anxiety has not resolved. Patient told me she had difficulties falling asleep last night because she had "a lot of energy and feeling unsettled." Patient then proceeded to speak about her friend Paul. She jumped from 1 topic to another intertwining statements about her parents, Paul, and her school goals. Patient told me that she graduated from high school and took at "gap" year because she was feeling "chronically ill" mentally and physically. Patient stated that she plans to enroll in college for this fall and to move to a friend's house because her parents parents are "overbearing and demanding." She went on to say "My parents are very strict, over protective, I feel they don't take me seriously." Denied history of abuse. When redirected to speak about her emotional state, patient indicated her depression is better but her anxiety is still very high. She rated her sadness today 4/10 and anxiety 7/10 (on a scale from 0-10, with 10 being the worst). for the entirety of the encounter, patient speech was fast and pressured. She also expressed many ideas ranging for ideas of creating a picture collage on the wall of her room (here at the hospital) to creating a mental health unit for veterans in the hospital, becoming the "vice-president" of that unit and naming her father the president of the unit. Physical Exam Psychiatric Orientation: alert and oriented x 3 Apperance: appropriately dressed and + disheveled Eye Contact: good eye contact Motor Behavior: no abnormal motor movements Speech: + pressured speech and + loud speech (has difficulty modulating her volumen, taking patient uses hearing aids.) Affect: euthymic affect and + elated affect; no labile affect and no irritable affect Mood: + depressed mood and + anxious mood; no irritable mood Thought Process: + tangential thought process and + flight of ideas Thought Content: + preoccupation (ideas are somewhat grandiose /fantasy world ) Suicidal Thoughts: denies suicidal thoughts, denies suicidal plan and denies suicidal intent Homicidal Thoughts: denies homicidal thoughts (but reports intrusive violent thoughts prior to admission), denies homicidal plan and denies homicidal intent Hallucinations: no auditory hallucinations and no visual hallucinations Cognition: recent memory grossly intact, remote memory grossly intact, attention grossly intact and language grossly intact Estimated Intelligence: consistent with education level Insight: + fair insight Judgment: + limited judgement Vital Signs (Past 24 Hours) Last Vital Signs Temp 36.2 C L 05/27/25 06:24 Pulse 94 H 05/27/25 06:25 Resp 16 05/27/25 06:24 BP 112/72 05/27/25 06:25 Pulse Ox 98 05/24/25 08:40 O2 Del Method Room Air 05/24/25 08:40 Results & Data ([facility]) Laboratory Results Laboratory Results - last 24 hr 05/26/25 07:55 Estimat Average Glucose 74 Hemoglobin A1c 4.2 L Current Inpatient Medications Current Inpatient Medications: Current Inpatient Medications Acetaminophen (Acetaminophen 325 Mg Tab) 650 mg PO Q4H PRN PRN Reason: Headache or Minor Fever Stop: 06/23/25 07:35 Al Hydrox/Mg Hydrox/Simethicone (Aluminum/Magnesium Susp 30 Ml Udc) 30 ml PO Q4H PRN PRN Reason: GI Upset Stop: 06/23/25 07:35 Bismuth Subsalicylate (Bismuth Subsalicylate 262 Mg Chew) 2 tab PO Q30M PRN PRN Reason: Loose Stool/Diarrhea Stop: 06/23/25 07:35 Docusate Sodium (Docusate Sodium 100 Mg Cap) 100 mg PO BID KAJAL Stop: 06/24/25 20:59 Last Admin: 05/26/25 21:19 Dose: 100 mg Hydroxyzine HCl (Hydroxyzine Hcl 25 Mg Tab) 50 mg PO HSZ PRN PRN Reason: Insomnia Stop: 06/23/25 07:35 Last Admin: 05/26/25 23:33 Dose: 50 mg Hydroxyzine HCl (Hydroxyzine Hcl 25 Mg Tab) 25 mg PO Q4H PRN PRN Reason: Anxiety Stop: 06/23/25 07:35 Lorazepam (Lorazepam 1 Mg Tab) 1 mg PO TID PRN PRN Reason: agitation/restlessness Stop: 06/23/25 11:58 Magnesium Hydroxide (Magnesium Hydroxide Susp 30 Ml Udc) 30 ml PO DAILY PRN PRN Reason: Constipation Stop: 06/23/25 07:35 Olanzapine (Olanzapine 5 Mg Tablet) 5 mg PO HS PRN PRN Reason: insomnia Stop: 06/23/25 21:59 Olanzapine (Olanzapine 10 Mg Tab) 10 mg PO HS KAJAL Stop: 06/25/25 21:59 Last Admin: 05/26/25 21:20 Dose: 10 mg Sodium Chloride (Sodium Chloride 0.65% Na Soln 45 Ml ([place])) 1 - 2 sprays NA PRN PRN PRN Reason: Nasal Dryness/Congestion Stop: 06/23/25 07:35 Mental Health & Subst Abuse Tx Psychiatrist Name of Psychiatrist: Rohini Cabrera Psychiatrist's Date Of Appointment With Psychiatric Provider: 06/08/25 Time of Appointment with Psychiatrist: [id number] Therapist Name of Therapist: Angi Luna Date of Therapist Appointment: 06/01/25 Time of Therapist Appointment: 1000 Wait Staff Name of Wait Staff: N/A Post Discharge Appointments Primary Care Physician Name Of Family Doctor/PCP: Dr. Ronquillo Other #1: Name of Aftercare Appointment: [facility] (Post hospitalization zoom meeting) Phone Number of Aftercare Appointment: [phone] Date of Aftercare Appointment: 06/01/25 Time of Aftercare Appointment: 10AM Aftercare Appointment Comment: Zoom link will be sent to your [employer] email Contact Information Discharge Discharge Address: [facility] [place] [id number] (2) Obsessive compulsive disorder Obsessive-compulsive disorder type: unspecified Qualified Code(s): F42.9 - Obsessive-compulsive disorder, unspecified (3) ADHD Attention deficit-hyperactivity disorder type: unspecified Qualified Code(s): F90.9 - Attention-deficit hyperactivity disorder, unspecified type (4) Insomnia Insomnia type: due to other mental disorder Qualified Code(s): F51.05 - Insomnia due to other mental disorder; F99 - Mental disorder, not otherwise specified
--- NOTE | 2025-05-28 09:14 | Psychiatric Progress Note ---
Date of Service May 28, 2025 Impression / Recommendations Impression EMEKA CASILLAS is a 19-year-old woman who currently lives in [place] with her parents, has a history of cochlear implant, ADHD, OCD, depression, anxiety and was admitted on 05/24/25 07:36 on a 201 voluntary commitment for unusual behaviors, concern for akhil, intrusive thoughts. Diagnostically consistent with unspecified mood disorder with Autism Spectrum as primary. Many autistic patients do experience delusions. However, it seems likely that at least some of her "delusions" may be a result of neuro divergent experiences. Patient reported a long history of feeling easily overstimulated, to the point of removing her hearing aids in the mornings to decrease the sensory input. She struggles to differentiate between her internal thoughts and external environment. She appears to have reach fantasy world. We have discussed some aspects of the autism spectrum diagnosis with patient has been offer reading materials to understand the condition better. On exam, her thoughts seem more organized and speech was not pressured. Patient is joined some improvement. Medication adjustment done today. Overall I spent a total of 30 minutes for this evaluation including review of [facility] records, review of labwork, direct evaluation of the patient, counseling the patient, ordering medication, risk assessment, and documentation in the electronic health record. (1) Unspecified mood [affective] disorder: (2) Obsessive compulsive disorder: (3) ADHD: (4) Insomnia: (5) Autism spectrum disorder: Plan 05/28/25: -Magnesium 400 mg at bedtime for insomnia. Ordered magnesium oxide, magnesium glycinate not available.- -Increase olanzapine to 15 mg p.o. nightly. -Monitoring vitals and physical symptoms to differentiate between body sensations related to medication side effects versus medical condition (simple cold, other infectious processes) 05/27/25: -Continue medication without changes -Sleep hygiene discussed. Encourage to stay out of bed during the daytime. Avoid drinking coffee in the afternoon. 05/26/2025: - Increase Zyprexa to 10 mg po HS 05/25/2025: -Added Colace 100mg po BID for constipation -Tolerating medications well. NO side effects on initial dose of OLZ. May benefit from increase but the medication was introduced yesterday. Will reassess in the next few days. No other medication changes 05/24/2025: The patient was admitted to the [facility] (locked inpatient mental health unit) on q15 min checks (behavioral with suicide precautions) for safety. The patient will participate in group, recreational, and milieu therapies and will be offered additional individual and family sessions as clinically appropriate. -Start olanzapine 5mg HS with additional 5mg HS prn for insomnia -fasting lipid panel, HbA1c and Vit D tomorrow AM -Symptom questionnaires: PHQ-9, COLLEEN-7, mood disorder questionnaire, Y-BOCS, Jade BPD Inventory Assets Strengths: supportive relationships, willing to get treatment Needs: safety and stabilization, medication adjustment, additional coping skills, increased outpatient services Suicide Risk Level Suicide Risk Level: Moderate (q15 min suicide checks) Risk Factors Assessment Male: No : Yes Do You Have Access To A Gun?: No Health Problems: No Mental Health Diagnoses: Yes Substance Use Disorders: No Previous Attempt: No Family History of Suicide: No Previous Psychiatric Hospitalization: No Hopelessness: No Protective Factors Assessment Islam Beliefs: Yes : No Responsible for Young Children: No Employed: No Stable Relationships: Yes Supportive Family: Yes Interval History Chief Complaint "My body is recovering from the trauma" Review of Systems Sleep Information Total Hours of Sleep: 5 Meal Information Percent Meal Consumed - Breakfast: 0 Percent Meal Consumed - Lunch: 100 Percent Meal Consumed - Dinner: 100 Nutrition Comment: pt. asleep. meal labeled, dated and refrigerated Subjective Subjective Patient was seen & assessed and interval progress reviewed with nursing and social work Patient evaluated this morning for follow-up. She presented calm and cooperative. Patient stated she is feeling " under the weather" and explain that after the episode that caused her admission to the hospital she is now feeling "safe" therefore her body is "not tense anymore, but is now letting go and feels like I am about to get sick." Patient also complaining of difficulty sleeping stated that she had a difficult time falling asleep after taking 10 mg of olanzapine and requested the as needed 5 mg. She felt that 50 mg worked better than 10. Patient wishes to increase her nighttime scheduled dose to 15 mg. When discussing increased appetite, patient explained that she had gained 30 pounds at home in the last month despite exercising. She reported her appetite is not increased at this time; however, states that she is eating more "to tell my body that I am not starving." Patient expressed plans to continue with a high-protein diet, exercising, and avoiding junk food in order to maintain a healthy weight. She also stated "I am not to be dieting, and I will do that." Patient denies suicidal homicidal ideations. Reported an experience of hearing "a voice screaming" last night while trying to fall asleep. Physical Exam Psychiatric Orientation: alert and oriented x 3 Apperance: appropriately dressed, appropriately groomed and + disheveled Eye Contact: good eye contact Motor Behavior: no abnormal motor movements and + psychomotor agitation (Restless) Speech: + pressured speech and + loud speech (has difficulty modulating her volumen, taking patient uses hearing aids.) Affect: euthymic affect; no labile affect, no irritable affect and no elated affect Mood: no depressed mood, no anxious mood and no irritable mood Thought Process: goal directed thought process Thought Content: + preoccupation (mainly about food) Suicidal Thoughts: denies suicidal thoughts, denies suicidal plan and denies suicidal intent Homicidal Thoughts: denies homicidal thoughts, denies homicidal plan and denies homicidal intent Hallucinations: no auditory hallucinations and no visual hallucinations Cognition: recent memory grossly intact, remote memory grossly intact, attention grossly intact and language grossly intact Estimated Intelligence: consistent with education level Insight: + fair insight Judgment: + limited judgement Vital Signs (Past 24 Hours) Last Vital Signs Temp 36.4 C L 05/28/25 06:21 Pulse 103 H 05/28/25 06:21 Resp 16 05/28/25 06:21 BP 111/74 05/28/25 06:21 Pulse Ox 98 05/24/25 08:40 O2 Del Method Room Air 05/24/25 08:40 Results & Data ([facility]) Current Inpatient Medications Current Inpatient Medications: Current Inpatient Medications Acetaminophen (Acetaminophen 325 Mg Tab) 650 mg PO Q4H PRN PRN Reason: Headache or Minor Fever Stop: 06/23/25 07:35 Al Hydrox/Mg Hydrox/Simethicone (Aluminum/Magnesium Susp 30 Ml Udc) 30 ml PO Q4H PRN PRN Reason: GI Upset Stop: 06/23/25 07:35 Bismuth Subsalicylate (Bismuth Subsalicylate 262 Mg Chew) 2 tab PO Q30M PRN PRN Reason: Loose Stool/Diarrhea Stop: 06/23/25 07:35 Docusate Sodium (Docusate Sodium 100 Mg Cap) 100 mg PO BID KAJAL Stop: 06/24/25 20:59 Last Admin: 05/28/25 09:01 Dose: 100 mg Hydroxyzine HCl (Hydroxyzine Hcl 25 Mg Tab) 50 mg PO HSZ PRN PRN Reason: Insomnia Stop: 06/23/25 07:35 Last Admin: 05/26/25 23:33 Dose: 50 mg Hydroxyzine HCl (Hydroxyzine Hcl 25 Mg Tab) 25 mg PO Q4H PRN PRN Reason: Anxiety Stop: 06/23/25 07:35 Lorazepam (Lorazepam 1 Mg Tab) 1 mg PO TID PRN PRN Reason: agitation/restlessness Stop: 06/23/25 11:58 Magnesium Hydroxide (Magnesium Hydroxide Susp 30 Ml Udc) 30 ml PO DAILY PRN PRN Reason: Constipation Stop: 06/23/25 07:35 Olanzapine (Olanzapine 5 Mg Tablet) 5 mg PO HS PRN PRN Reason: insomnia Stop: 06/23/25 21:59 Last Admin: 05/27/25 23:35 Dose: 5 mg Olanzapine (Olanzapine 10 Mg Tab) 10 mg PO HS KAJAL Stop: 06/25/25 21:59 Last Admin: 05/27/25 21:03 Dose: 10 mg Sodium Chloride (Sodium Chloride 0.65% Na Soln 45 Ml ([place])) 1 - 2 sprays NA PRN PRN PRN Reason: Nasal Dryness/Congestion Stop: 06/23/25 07:35 Mental Health & Subst Abuse Tx Psychiatrist Name of Psychiatrist: Rohini Cabrera Psychiatrist's Date Of Appointment With Psychiatric Provider: 06/08/25 Time of Appointment with Psychiatrist: [id number] Therapist Name of Therapist: Angi Luna Date of Therapist Appointment: 06/01/25 Time of Therapist Appointment: 1000 Ramp Attendant Name of Ramp Attendant: N/A Post Discharge Appointments Primary Care Physician Name Of Family Doctor/PCP: Dr. Ronquillo Other #1: Name of Aftercare Appointment: [facility] (Post hospitalization zoom meeting) Phone Number of Aftercare Appointment: [phone] Date of Aftercare Appointment: 06/03/25 Time of Aftercare Appointment: 10AM Aftercare Appointment Comment: Zoom link will be sent to your [employer] email #2: Name of Aftercare Appointment: [facility] Phone Number of Aftercare Appointment: Date of Aftercare Appointment: 06/02/25 Time of Aftercare Appointment: 1:00PM Aftercare Appointment Comment: [facility]ra sent telehealth intake link to: Contact Information Discharge Discharge Address: [address] [place] [address] [place] [id number] (2) Obsessive compulsive disorder Obsessive-compulsive disorder type: unspecified Qualified Code(s): F42.9 - Obsessive-compulsive disorder, unspecified (3) ADHD Attention deficit-hyperactivity disorder type: unspecified Qualified Code(s): F90.9 - Attention-deficit hyperactivity disorder, unspecified type (4) Insomnia Insomnia type: due to other mental disorder Qualified Code(s): F51.05 - Insomnia due to other mental disorder; F99 - Mental disorder, not otherwise specified
[2025-05-28] MEDS: MAGNESIUM OXIDE 400 MG TAB PO SCH (21:29)
[2025-05-29 06:25] VITALS: BP 115/73; TEMP 97.7
--- NOTE | 2025-05-29 08:27 | Discharge Summary ---
Date of Service May 29, 2025 History of Present Illness Ashley presents for psychiatric admission with worsening intrusive thoughts, severe sleep disturbances, and mood changes over the past two weeks in the context of starting college classes and recent medication changes. She abruptly moved out of her parents home and has been staying with her brother in recent days. She gets tearful discussing missing her parents after leaving their home. She reports family-related stress in describing her parents as "too loving" and "over-bearing". She reports experiencing intrusive thoughts about violence towards others and herself, which she describes as similar to her previous OCD-related thoughts but significantly worse recently. These thoughts can be violent or sexual in nature, involving people of all ages, and occur when others are close to her. She finds these thoughts distressing and states they are more severe than her baseline OCD symptoms. Over the past two weeks, Ashley has been experiencing severe sleep disturbances, sleeping only 1-2 hours per night. She attempted to self-medicate one night with alcohol to improve sleep, consuming multiple beers in one night but this was ineffective. She reports feeling happy and stable at present, attributing this to finally getting help, but mentions crying frequently over the past week due to missing her parents. Asked about symptoms of akhil she denies any grandiose or jainism delusions but makes some reference to her jainism beliefs and states she has been engaged in more risk taking. She initially reports engaging in excessive shopping, buying a new wardrobe, but then she clarifies this has been planned for nearly two years and she was waiting for "mid summer sales". Additionally, she mentions experiencing unusual tastes in her coffee today, describing it as tasting like alcohol, and asks "please don't put any more medications in the coffee" noting "I know you do that". Ashley discontinued her medications including Adderall, Pristiq and guanfacine 4 days ago. Since stopping these medications, she hasn't noticed any significant c hanges except increased appetite. Ashley has a history of ADHD and OCD. She reports a history of nightmares related to her OCD. She denies any prior history of psychosis nor akhil. History of self-harming behaviors. History of binging and then restricting food. Additional history per ED CM note on 05/23/2025: "Met with Ashley at bedside to complete psychiatric assessment. Her mother, father, and brother Jean Pierre are present at bedside with Ashley's permission. She has a superficially bright affect and smiles throughout assessment. Ashley states that she is here due to what she presumes are "signs of bipolar depression". She notes that over the past few weeks, her behavior has made people around her feel uncomfortable and unsafe. Two weeks ago, she left her parents' home (where she resides) after a disagreement. She knowingly took her mother's car knowing she did not have permission to use it. Ashley states that she left if she stayed, she was "either going to complete suicide or kill my whole family". She then stayed with her brother Jean Pierre for a few days and, through their discussions, decided that Ashley needed some additional psychiatric help. Jean Pierre called Crisis to discuss the situation and they recommend Ashley come to [facility] for evaluation. Ashley denies active suicidal or homicidal ideation at time of assessment, but does admit that she thinks about ways to kill herself and others every time she walks into a room. She pointed out several items in the room that she could use to hurt herself or someone else. She denies intent to do so, but thinks about this all the time." Physical Exam Vital Signs (Past 24 Hours) Last Vital Signs Temp 36.5 C 05/29/25 06:24 Pulse 99 H 05/29/25 06:25 Resp 16 05/29/25 06:24 BP 115/73 05/29/25 06:25 Pulse Ox 98 05/24/25 08:40 O2 Del Method Room Air 05/24/25 08:40 No changes since admission. See admission H&P, MSE per above and day of discharge summary. Principal Diagnosis Bipolar disorder most recent episode manic Autism spectrum disorder, provisional Psychiatric Data See daily stay summary. In short, safety was maintained and the patient was cooperative with care. Medication changes included starting olanzapine and titrating up to 15 mg and they tolerated this well. A family session was held on 05/29/25 and safety plan was completed prior to discharge. I met with patient's parents and answer the questions with the patient's consent. We discussed treatment course for stabilization, medication recommendations, and recommendations for outpatient follow-up and further medications adjustments to be addressed by primary psychiatrist. Parents educated about diagnosis concerns including suspected autism spectrum disorder. Day of Discharge Assessment Today the patient voices readiness for discharge. They note improvement in mood and deny thoughts to harm self or others. Thoughts remain organized and they are improved from admission. There is no evidence of psychosis. They agree to take mediations as prescribed and keep follow-up appointments. They are stable for discharge to outpatient level of care. Overall, I spent a total of 80 minutes with this case, including review of chart,direct evaluation of the patient,counseling the patient,communication with family,ordering medication,coordination with nursing, interdisciplinary team meeting,risk assessment,and documentation. Transition of Care Transition Of Care Record: was reviewed with the patient Advance Directives Advance Directives Information Provided: Yes Advance Directives: No Mental Health Advance Directive: No Advance Directives on File: No Living Will: No Power of Library Director: No Advance Directives Reason:: Declines as Mental Health Visit. Suicide Risk Level Suicide Risk Level: Low (q15 min observation checks) Risk Factors Assessment Male: No : Yes Do You Have Access To A Gun?: No Health Problems: No Mental Health Diagnoses: Yes Substance Use Disorders: No Previous Attempt: No Family History of Suicide: No Previous Psychiatric Hospitalization: No Hopelessness: No Protective Factors Assessment Quaker Beliefs: Yes : No Responsible for Young Children: No Employed: No Stable Relationships: Yes Supportive Family: Yes Discharge Data Lab Results 05/23/25 05/23/25 05/26/25 19:10 19:15 07:55 WBC 9.15 RBC 4.37 Hgb 13.3 Hct 37.2 MCV 85.1 MCH 30.4 MCHC 35.8 RDW Std Deviation 39.4 RDW Coeff of Clem 12.8 Plt Count 256 MPV 9.7 Immature Gran % (Auto) 0.4 Neut % (Auto) 65.5 Lymph % (Auto) 23.4 [place] % (Auto) 7.5 Eos % (Auto) 2.7 Baso % (Auto) 0.5 Neut # (Auto) 5.98 Lymph # (Auto) 2.14 [place] # (Auto) 0.69 H Eos # (Auto) 0.25 Baso # (Auto) 0.05 Immature Gran # (Auto) 0.04 Sodium 137 Potassium 3.6 Chloride 104 Carbon Dioxide 24 Anion Gap 9 BUN 12 Creatinine 0.60 Est Cr Clr Drug Dosing 146.5 eGFR 131.70 BUN/Creatinine Ratio 20.0 Glucose 126 H Estimat Average Glucose 74 Hemoglobin A1c 4.2 L Calcium 9.5 Total Bilirubin 1.1 H AST 26 ALT 31 Alkaline Phosphatase 51 Total Protein 7.2 Albumin 4.4 Globulin 2.8 Albumin/Globulin Ratio 1.6 Triglycerides 45 Cholesterol 166 LDL Cholesterol, Calc 69 VLDL Cholesterol, Calc 9 HDL Cholesterol 88 Cholesterol/HDL Ratio 1.9 25-OH Vitamin D Total 26.4 TSH 1.839 HCG, Qual Negative Urine Color Yellow Urine Appearance Cloudy A Urine pH 7.5 Ur Specific [place] 1.012 Urine Protein Negative Urine Glucose (UA) Negative Urine Ketones Negative Urine Blood Negative Urine Nitrite Negative Urine Bilirubin Negative Urine Urobilinogen Negative Ur Leukocyte Esterase Negative Urine WBC (Auto) 0-5 Urine RBC (Auto) 0-2 U Hyaline Cast (Auto) 0-2 U Epithel Cells (Auto) 0-2 Urine Bacteria (Auto) None Seen Urine Comment Salicylates < 3.0 L Urine Opiates Screen Neg Ur Methadone, Qual Neg Urine Fentanyl Screen Neg Acetaminophen < 3 L Urine Barbiturates Neg Ur Phencyclidine (PCP) Neg U Amphetamin/Meth Scrn Neg MDMA (Ecstasy) Screen Neg U Benzodiazepines Scrn Neg Ur Cocaine Metabolite Neg U Marijuana (THC) Screen Neg Ethyl Alcohol mg/dL < 10.0 SARS-CoV-2, RNA, NAAT NEGATIVE Hospital Course (1) Unspecified mood [affective] disorder: (2) Obsessive compulsive disorder: (3) ADHD: (4) Insomnia: (5) Autism spectrum disorder: Plan 05/29/25: Ready for discharge 05/28/25: -Magnesium 400 mg at bedtime for insomnia. Ordered magnesium oxide, magnesium glycinate not available.- -Increase olanzapine to 15 mg p.o. nightly. -Monitoring vitals and physical symptoms to differentiate between body sensations related to medication side effects versus medical condition (simple cold, other infectious processes) 05/27/25: -Continue medication without changes -Sleep hygiene discussed. Encourage to stay out of bed during the daytime. Avoid drinking coffee in the afternoon. 05/26/2025: - Increase Zyprexa to 10 mg po HS 05/25/2025: -Added Colace 100mg po BID for constipation -Tolerating medications well. NO side effects on initial dose of OLZ. May benefit from increase but the medication was introduced yesterday. Will reassess in the next few days. No other medication changes 05/24/2025: The patient was admitted to the [facility] ([facility] inpatient mental health unit) on q15 min checks (behavioral with suicide precautions) for safety. The patient will participate in group, recreational, and milieu therapies and will be offered additional individual and family sessions as clinically appropriate. -Start olanzapine 5mg HS with additional 5mg HS prn for insomnia -fasting lipid panel, HbA1c and Vit D tomorrow AM -Symptom questionnaires: PHQ-9, COLLEEN-7, mood disorder questionnaire, Y-BOCS, Jade BPD Mental Health & Subst Abuse Tx Psychiatrist Name of Psychiatrist: Rohini Cabrera Psychiatrist's Date Of Appointment With Psychiatric Provider: 06/08/25 Time of Appointment with Psychiatrist: 8:20AM Psychiatric Appointment Comment: [address] [facility] [id number] Therapist Name of Therapist: Angi Peña over Matter Therapist's Date of Therapist Appointment: 06/01/25 Time of Therapist Appointment: 10:00AM Optical Worker Name of Optical Worker: N/A Post Discharge Appointments Primary Care Physician Name Of Family Doctor/PCP: Dr. Ronquillo Contact Information Discharge Discharge [address]: [address] [place] [id number] Discharge Plan Discharge Items Patient Disposition: Home - Self-Care Reason For Visit: UNSPECIFIED MOOD DISORDER Discharge Diagnosis: Bipolar disorder most recent episode manic Autism spectrum disorder, provisional Condition on Discharge: Fair Activity: Resume your previous activity Non-emergency contact: Primary Care Provider, Psychiatrist, Therapist and Live Truck Technician Call non-emergency contact if: you have any medication questions and your symptoms worsen Follow-up/Referrals: Jazmin Ronquillo, [Primary Care Provider] - Diet: Regular Addtl Attending Provider Instructions: SPECIAL CARE INSTRUCTIONS: 1. Follow through with your scheduled aftercare appointments. If unable to keep an appointment, please call to reschedule. 2. Take your medication only as prescribed. Medication should not be changed or stopped without the approval of your doctor. In the event of worsening symptoms or concerns about side effects, contact your doctor immediately. 3. Utilize new healthy coping skills, anger management skills, and stress management skills learned during your hospitalization. Journal feelings and process them with a support person. Identify stressors or situations that may result in relapse, deterioration or inappropriate behaviors and develop a plan to deal with those issues. 4. If your coping skills are ineffective and you are in crisis, contact your outpatient providers for direction. If unable to reach your providers, please call the [facility] CRISIS LINE AT , go to the [facility] walk-in center at [address], [address], [place], or go to the closest Emergency Room. 5. Avoid alcohol and un-prescribed drugs. 6. You have been provided with the Mental Health Advance Directives Pamphlet for your review. 7. Your condition is stable for discharge to outpatient level of care, but recovery is an ongoing process. Ifthoughts to harm yourself or others return, follow the safety plan developed during your stay. Planning for a safe return home includes securing weapons. Our treatment team recommends weaponsbe removed from the home until your outpatient provider reassesses your progress. In rare cases where the items themselvescannot be removed, guns and ammunitionshould be secured separatelyand keys stored by a reliable personoutside of the home. If you were admitted on an involuntary commitment, the police or other legal authorities may be involved in this process. AFTERCARE APPOINTMENTS: * Please call your insurance company prior to your scheduled appointment to confirm your aftercare providers are covered. Take your insurance information to your appointments. WHO TO CALL AND WHEN: Medical Emergencies: For questions or emergencies related to your hospital stay, please contact the Inpatient Behavioral Health Unit at [phone]. A steel worker is on-call 07/05 for the Behavioral Health Unit for emergencies At any time you feel your situation is an emergency, you may also call 911 immediately. Pending Studies at Discharge: No Stand-Alone Forms: My [facility] TRADE TO REBATE, Smoking Cessation Medications and DC Order Prescriptions: New olanzapine 5 mg Tablet 15 mg PO HS 30 Days Qty: 90 0RF Discontinued ergocalciferol (vitamin D2) 50,000 unit tablet 50,000 unit PO WK dextroamphetamine-amphetamine 15 mg capsule,extended release 24hr 15 cap PO QAM guanfacine 2 mg tablet extended release 24 hr 2 mg PO HS desvenlafaxine succinate 25 mg tablet extended release 24 hr 25 mg PO QAM Discharge Orders: Discharge Order (Routine); Ordered 05/29/25 Ordered By: Tracy Dc/Other Patient Handouts: How to Control Your Temper, Emotional Eating: How to [place], Understanding Mood Disorders Admission Data Admit Date/Time: 05/24/25 07:36 Attending Provider: Radha Boateng Admit Provider: Radha Boateng Primary Care Provider: Jazmin Ronquillo Other Interventions: Discharge Summary Assessment (RN) Last Done: 05/29/25 09:12 PSY Interdisciplinary Discharge Planning Last Done: 05/29/25 09:11 [place] [address] D/C day mgmt > 30 min Patient Type Established History Comprehensive Exam Comprehensive Diagnoses Unspecified mood [affective] disorder F39 Obsessive-compulsive disorder, unspecified type F42.9 Obsessive-compulsive disorder type: unspecified Attention deficit hyperactivity disorder (ADHD), unspecified ADHD type F90.9 Attention deficit-hyperactivity disorder type: unspecified Insomnia due to other mental disorder F51.05; F99 Insomnia type: due to other mental disorder Autism spectrum disorder F84.0 Time Spent (min) 80
[2025-05-29 09:15] VITALS: PULSE 97
[2025-05-29] MEDS: LORazepam 1 MG TAB PO PRN (09:45)
== END 2025-05-29 12:20 | disposition home or self-care (01) | DRG 885 ==
LOC: ED 18:51 → 3S 05-24 07:36